=== PATIENT | female | born 1960 | race Caucasian/White ===

== ENCOUNTER 2024-11-26 08:30 | Outpatient (RCR) | payer OTHER, SELFPAY | END 2025-01-21 16:42 | disposition home or self-care (01) | PROVIDERS: Visit Provider Physician Assistant Surgical | DX: S82.401D Unspecified fracture of shaft of right fibula, subsequent encounter for closed fracture with routine healing (principal); Z51.89 Encounter for other specified aftercare | CPT/HCPCS: 97110; 97161 ==